=== PATIENT | male | born 1995 | race African-American/Black ===

== ENCOUNTER 2022-04-26 08:35 | Inpatient (IN) | payer MEDICAID ==
[~2022-04-26] VITALS: Ht 180.3 cm; Wt 69.1 kg
[2022-04-26] MEDS ORDERED: HALOPERIDOL 5 MG TABLET PO PRN (12:30)
[2022-04-26] MEDS ORDERED: ZOLPIDEM TARTRATE 10 MG TABLET PO PRN (12:30)
[2022-04-26] MEDS ORDERED: LORazepam 2 MG TABLET PO PRN (12:30)
[2022-04-26 13:16] LABS: COVID AG,FIA SOURCE NASOPHARYNGEAL
[2022-04-26 19:57] VITALS: BP 135/68
[2022-04-26 20:07] VITALS: BP 128/72
[2022-04-26] MEDS ORDERED: BACITRACIN 28 GM OINTMENT TP PRN (20:30)
[2022-04-26] MEDS ORDERED: BENZOCAINE/MENTHOL LOZENGE PO PRN (20:30)
[2022-04-26] MEDS ORDERED: ONDANSETRON HCL 4 MG TABLET PO PRN (20:30)
[2022-04-26] MEDS ORDERED: OMEPRAZOLE 20 MG CAPSULE PO PRN (20:30)
[2022-04-26] MEDS ORDERED: IBUPROFEN 600 MG TABLET PO PRN (20:30)
[2022-04-26] MEDS ORDERED: CloNIDine HCL 0.1 MG TABLET PO PRN (20:30)
[2022-04-26] MEDS ORDERED: DOCUSATE SODIUM 100 MG CAPSULE PO PRN (20:30)
[2022-04-26] MEDS ORDERED: MAGNESIUM HYDROXIDE SUSPENSION 30 ML UDCUP PO PRN (20:30)
[2022-04-26] MEDS ORDERED: PETROLATUM,WHITE 28 GM JELLY TP PRN (20:30)
[2022-04-26] MEDS ORDERED: LOPERAMIDE HCL 2 MG CAPSULE PO PRN (20:30)
[2022-04-26] MEDS ORDERED: ALBUTEROL SULFATE HFA 90 MCG/PUFF 8 GM INHALER IH PRN (20:30)
[2022-04-26] MEDS ORDERED: ACETAMINOPHEN 325 MG TABLET PO PRN (20:30)
[2022-04-26] MEDS ORDERED: MAG HYDROX/AL HYDROX/SIMETH ES 30 ML SUSPENSION UDCUP PO PRN (20:30)
[2022-04-27 20:08] VITALS: BP 117/72
[2022-04-27] MEDS: RisperiDONE 3 MG TABLET PO SCH (20:57)
[2022-04-27] MEDS: DIVALPROEX SODIUM 500 MG DR TABLET PO SCH (20:57)
[2022-04-28 06:56] LABS: BASOPHILS % (AUTO) 0.7 % (0.0-2.0); EOSINOPHILS % (AUTO) 1.3 % (1.0-6.0); HEMOGLOBIN 12.4 g/dL (13.5-17.5); LYMPHOCYTES # (AUTO) 1.6 K/uL (1.0-4.8); LYMPHOCYTES % (AUTO) 55.8 % (22.0-44.0); MEAN CORPUSCULAR HEMOGLOBIN 29.1 pg (26.0-34.0); MEAN CORPUSCULAR HGB CONC 32.6 G/dL (31.0-37.0); MEAN CORPUSCULAR VOLUME 89 fL (80-100); MONOCYTES # (AUTO) 0.2 K/uL (0.1-1.0); NEUTROPHILS % (AUTO) 35.2 % (40.0-70.0); PLATELET COUNT (AUTO) 282 K/uL (150-450); RED BLOOD CELL COUNT(AUTO) 4.27 MIL/uL (4.50-5.90); RED CELL DISTRIBUTION WIDTH 12.6 % (11.5-14.5)
[2022-04-28 06:58] LABS: HEMOGLOBIN A1C 5.6 % (3.8-5.6)
[2022-04-28 07:26] LABS: ALANINE AMINOTRANSFERASE 70 U/L (12-78); ALBUMIN 3.3 g/dL (3.4-5.0); ALKALINE PHOSPHATASE 43 U/L (46-116); ANION GAP 5 mmol/L (8-16); ASPARTATE AMINOTRANSFERASE 66 U/L (15-37); BILIRUBIN,TOTAL 0.4 mg/dL (0.1-1.0); CALCIUM, TOTAL 8.9 mg/dL (8.8-10.5); CARBON DIOXIDE 32 mmol/L (22-29); CHLORIDE 102 mmol/L (98-107); CREATININE 0.87 mg/dL (0.60-1.30); GLUCOSE,RANDOM 86 mg/dL (70-110); PHOSPHORUS 3.9 mg/dL (2.5-4.9); POTASSIUM 3.9 mmol/L (3.5-5.1); SODIUM SERUM 139 mmol/L (136-145); TOTAL PROTEIN, SERUM 6.6 g/dL (6.4-8.2); UREA NITROGEN, BLOOD 10 mg/dL (7-18)
[2022-04-28 07:27] LABS: GLOMERULAR FILTR. RATE CALC > 60 mL/min (>60)
[2022-04-28] MEDS: DIVALPROEX SODIUM 500 MG DR TABLET PO SCH ×2 (09:00→20:06)
[2022-04-28] MEDS: RisperiDONE 3 MG TABLET PO SCH ×2 (09:00→20:07)
[2022-04-28] MEDS ORDERED: DIVA-112 PO (15:16)
[2022-04-28] MEDS ORDERED: RISP3TAB35 PO (15:16)
[2022-04-29] MEDS: DIVALPROEX SODIUM 500 MG DR TABLET PO SCH ×2 (09:00→20:38)
[2022-04-29] MEDS: RisperiDONE 3 MG TABLET PO SCH ×2 (09:00→20:38)
[2022-04-29 16:32] VITALS: BP 110/73
[2022-04-29 20:08] VITALS: BP 112/70
[2022-04-30] MEDS: DIVALPROEX SODIUM 500 MG DR TABLET PO SCH ×2 (09:00→20:31)
[2022-04-30] MEDS: RisperiDONE 3 MG TABLET PO SCH ×2 (09:00→20:31)
[2022-04-30 20:00] VITALS: BP 120/70
[2022-05-01] MEDS: DIVALPROEX SODIUM 500 MG DR TABLET PO SCH ×2 (08:04→21:00)
[2022-05-01] MEDS: RisperiDONE 3 MG TABLET PO SCH ×2 (08:04→21:00)
[2022-05-01 21:29] VITALS: BP 125/75
[2022-05-02 08:23] VITALS: BP 115/68
[2022-05-02] MEDS: RisperiDONE 3 MG TABLET PO SCH ×2 (09:00→20:30)
[2022-05-02] MEDS: DIVALPROEX SODIUM 500 MG DR TABLET PO SCH ×2 (09:00→20:29)
[2022-05-02 20:30] VITALS: BP 122/70
[2022-05-03] MEDS: DIVALPROEX SODIUM 500 MG DR TABLET PO SCH ×2 (09:00→20:44)
[2022-05-03] MEDS: RisperiDONE 3 MG TABLET PO SCH ×2 (09:00→20:44)
[2022-05-03 20:20] VITALS: BP 119/79
[2022-05-04 08:09] VITALS: BP 120/71
[2022-05-04] MEDS: HALOPERIDOL 5 MG TABLET PO SCH (09:00)
[2022-05-04] MEDS: DIVALPROEX SODIUM 500 MG DR TABLET PO SCH ×2 (09:03→20:29)
[2022-05-04 20:09] VITALS: BP 104/69
[2022-05-05 08:03] VITALS: BP 139/75
[2022-05-05] MEDS: HALOPERIDOL 5 MG TABLET PO SCH (08:12)
[2022-05-05] MEDS: DIVALPROEX SODIUM 500 MG DR TABLET PO SCH ×2 (08:13→20:20)
[2022-05-05 20:03] VITALS: BP 124/66
[2022-05-06] MEDS: DIVALPROEX SODIUM 500 MG DR TABLET PO SCH ×2 (08:03→20:06)
[2022-05-06] MEDS: HALOPERIDOL 5 MG TABLET PO SCH (08:03)
[2022-05-06 21:32] VITALS: BP 122/78
[2022-05-07] MEDS: DIVALPROEX SODIUM 500 MG DR TABLET PO SCH ×2 (08:14→20:05)
[2022-05-07] MEDS: HALOPERIDOL 5 MG TABLET PO SCH ×2 (08:14→09:14)
[2022-05-07 08:53] VITALS: BP 135/83
[2022-05-07 21:02] VITALS: BP 116/70
[2022-05-08] MEDS: DIVALPROEX SODIUM 500 MG DR TABLET PO SCH ×2 (08:03→20:16)
[2022-05-08] MEDS: HALOPERIDOL 5 MG TABLET PO SCH (08:13)
[2022-05-08 09:06] VITALS: BP 124/75
[2022-05-08 20:09] VITALS: BP 135/82
[2022-05-09 08:08] VITALS: BP 111/70
[2022-05-09] MEDS: HALOPERIDOL 5 MG TABLET PO SCH (08:35)
[2022-05-09] MEDS: DIVALPROEX SODIUM 500 MG DR TABLET PO SCH ×2 (08:36→20:36)
[2022-05-09 20:21] VITALS: BP 104/70
[2022-05-10 08:16] VITALS: BP 148/75
[2022-05-10] MEDS: DIVALPROEX SODIUM 500 MG DR TABLET PO SCH ×2 (08:21→20:23)
[2022-05-10] MEDS: HALOPERIDOL 5 MG TABLET PO SCH (08:21)
[2022-05-10 20:11] VITALS: BP 134/68
[2022-05-11] MEDS: DIVALPROEX SODIUM 500 MG DR TABLET PO SCH ×2 (08:12→20:57)
[2022-05-11] MEDS: HALOPERIDOL 5 MG TABLET PO SCH (08:13)
[2022-05-11 09:23] VITALS: BP 124/62
[2022-05-11 20:09] VITALS: BP 110/62
[2022-05-12 08:28] VITALS: BP 118/70
[2022-05-12] MEDS: HALOPERIDOL 5 MG TABLET PO SCH (08:29)
[2022-05-12] MEDS: DIVALPROEX SODIUM 500 MG DR TABLET PO SCH ×2 (08:29→22:10)
[2022-05-12 20:53] VITALS: BP 123/73
[2022-05-13] MEDS: HALOPERIDOL 5 MG TABLET PO SCH (08:17)
[2022-05-13] MEDS: DIVALPROEX SODIUM 500 MG DR TABLET PO SCH ×2 (08:18→20:21)
[2022-05-13 08:51] VITALS: BP 152/86
[2022-05-13 20:07] VITALS: BP 124/72
[2022-05-14 08:09] VITALS: BP 130/81
[2022-05-14] MEDS: HALOPERIDOL 5 MG TABLET PO SCH (09:01)
[2022-05-14] MEDS: DIVALPROEX SODIUM 500 MG DR TABLET PO SCH (09:02)
[2022-05-14] MEDS ORDERED: DIVA-112 PO (18:33)
[2022-05-14] MEDS ORDERED: HALO5TAB23 PO (18:33)
== END 2022-05-14 19:26 | disposition home or self-care (01) | DRG 750 ==
LOC: EMS 08:40 → B3A 16:21 → EDBD 16:21
PROVIDERS: ADMIT Psychiatry & Neurology Psychiatry; ATTEND Psychiatry & Neurology Psychiatry
DX: F20.9 Schizophrenia, unspecified (principal); R45.851 Suicidal ideations; F31.9 Bipolar disorder, unspecified; F17.200 Nicotine dependence, unspecified, uncomplicated; F41.9 Anxiety disorder, unspecified; Z20.822 Contact with and (suspected) exposure to COVID-19; G47.00 Insomnia, unspecified; Z79.899 Other long term (current) drug therapy
CPT/HCPCS: 80053; 83036; 83735; 84100; 85025; 99285